=== PATIENT | female | born 1965 | race Two or more races ===

== ENCOUNTER 2017-06-23 23:13 | Emergency (ER) | payer OTHER ==
[~2017-06-23] VITALS: Ht 157.5 cm; Wt 68.0 kg
== END 2017-06-24 09:09 | disposition home or self-care (01) ==
LOC: ER 23:13
DX: K80.20 Calculus of gallbladder without cholecystitis without obstruction (principal); R10.11 Right upper quadrant pain

== ENCOUNTER 2017-07-26 05:12 | Day surgery (SDC) | payer OTHER ==
[~2017-07-26 05:12] MED LIST: HIGH POTENCY I134 MG PO; TOPROL XL25 MG PO
== END 2017-07-26 13:55 | disposition home or self-care (01) ==
LOC: CIR.AMB 05:12
DX: K80.10 Calculus of gallbladder with chronic cholecystitis without obstruction (principal)

== ENCOUNTER → 2017-09-12 | Emergency (ER) | payer OTHER ==
[~2017-09-12] VITALS: Ht 152.4 cm; Wt 67.6 kg
[~2017-09-12] MED LIST changes: +ATENOLOL25 GM
== END | disposition home or self-care (01) ==
LOC: ER 17:55
DX: M77.52 Other enthesopathy of left foot and ankle (principal)

== ENCOUNTER → 2018-05-04 | Emergency (ER) | payer OTHER ==
[~2018-05-04] VITALS: Ht 152.4 cm; Wt 72.6 kg
== END | disposition home or self-care (01) ==
LOC: ER 21:31
DX: M54.5 Low back pain (principal)

== ENCOUNTER 2021-05-05 10:09 | Outpatient (CLI) | payer OTHER | END 2021-05-05 14:51 | disposition home or self-care (01) | LOC: MAMO-SONO 10:09 | PROVIDERS: ATTEND Specialist | DX: N63.0 Unspecified lump in unspecified breast (principal) ==

== ENCOUNTER 2022-05-23 16:35 | Emergency (ER) | payer OTHER ==
[~2022-05-23] VITALS: Ht 152.4 cm; Wt 72.6 kg
== END 2022-05-23 19:17 | disposition home or self-care (01) ==
LOC: ER 16:35
DX: T22.211A Burn of second degree of right forearm, initial encounter (principal); X10.2XXA Contact with fats and cooking oils, initial encounter; Y93.9 Activity, unspecified; Y92.9 Unspecified place or not applicable; Y99.9 Unspecified external cause status; Z88.8 Allergy status to other drugs, medicaments and biological substances

== ENCOUNTER 2022-12-30 21:35 | Emergency (ER) | payer OTHER ==
[~2022-12-30] VITALS: Ht 152.4 cm; Wt 77.1 kg
== END 2022-12-30 22:23 | disposition home or self-care (01) ==
LOC: ER 21:35
DX: J02.9 Acute pharyngitis, unspecified (principal); Z88.8 Allergy status to other drugs, medicaments and biological substances

== ENCOUNTER 2023-02-21 16:31 | Emergency (ER) | payer OTHER ==
[~2023-02-21] VITALS: Ht 152.4 cm; Wt 76.2 kg
[2023-02-21] MEDS ORDERED: SIMVASTATIN20 MG PO (17:07)
[2023-02-21] MEDS ORDERED: PROPRANOLOL HCL10 MG PO (17:07)
[2023-02-21] MEDS ORDERED: DICLOFENAC SODI75 MG PO (17:26)
== END 2023-02-21 18:07 | disposition home or self-care (01) ==
LOC: ER 16:31
DX: M77.8 Other enthesopathies, not elsewhere classified (principal); Z88.8 Allergy status to other drugs, medicaments and biological substances